=== PATIENT | male | born 1960 | race Caucasian/White ===

== ENCOUNTER 2017-08-27 09:42 | Observation (INO) | payer BC ==
--- NOTE | 2017-08-27 10:08 | ED ---
GI Bleed HPI - General Chief complaint: GI Bleed Stated complaint: Poss GI Bleed Time Seen by Provider: 08/27/17 09:45 Source: patient, EMS, RN notes reviewed Mode of arrival: EMS Limitations: physical limitation (MS) - History of Present Illness Initial comments: This is a pleasant 56-year-old male presents emergency department via EMS chief complaint rectal bleeding. Patient states that he had an episode a few months ago while having a bowel movement. Patient states again he had an additional episode yesterday while having a bowel movement and states that he had some bleeding in the shower today. Patient states that he does not go the bathroom regular because of his MS and states that he usually needs help. He states he either has to hold it or he really has to push. Patient states that he has had hemorrhoids in the past. He denies any abdominal pain denies any nausea, vomiting, fever, chills, chest pain or shortness breath. Patient states that he does feel this is early traumatic which has not made him feel well. Patient denies any dysuria or hematuria. Patient states he does not take any current medications. - Related Data Previous Rx's Medication Instructions Recorded Hydrocortisone [Anusol-Hc] 1 applic RECTAL BID #30 gm 08/27/17 Allergies Allergy/AdvReac Type Severity Reaction Status Date / Time No Known Allergies Allergy Verified 08/27/17 10:15 Review of Systems ROS Statement: Those systems with pertinent positive or pertinent negative responses have been documented in the HPI. ROS Other: All systems not noted in ROS Statement are negative. Past Medical History Additional Past Medical History / Comment(s): multiple sclerosis, hemorrhoids History of Any Multi-Drug Resistant Organisms: None Reported Past Surgical History: Cholecystectomy, Tonsillectomy Past Psychological History: No Psychological Hx Reported Smoking Status: Never smoker Past Alcohol Use History: None Reported Past Drug Use History: None Reported General Exam Limitations: no limitations General appearance: alert, in no apparent distress Head exam: Present: atraumatic, normocephalic, normal inspection Neck exam: Present: normal inspection, full ROM. Absent: tenderness, meningismus, lymphadenopathy Respiratory exam: Present: normal lung sounds bilaterally. Absent: respiratory distress, wheezes, rales, rhonchi, stridor Cardiovascular Exam: Present: regular rate, normal rhythm, normal heart sounds. Absent: systolic murmur, diastolic murmur, rubs, gallop, clicks GI/Abdominal exam: Present: soft, normal bowel sounds. Absent: distended, tenderness, guarding, rebound, rigid Rectal exam: Present: other (Blood noted around the rectum, hemorrhoids noted) Back exam: Absent: CVA tenderness (R), CVA tenderness (L) Skin exam: Present: warm, dry, intact, normal color. Absent: rash Course Vital Signs 08/27/17 08/27/17 08/27/17 09:43 10:25 10:28 Temperature 97.5 F L Pulse Rate 86 67 71 Respiratory 16 16 16 Rate Blood Pressure 140/82 101/58 120/63 O2 Sat by Pulse 98 97 98 Oximetry 08/27/17 11:06 Temperature Pulse Rate 91 Respiratory 16 Rate Blood Pressure 120/67 O2 Sat by Pulse 100 Oximetry - Reevaluation(s) Reevaluation #1: 08/27/17 11:03 1 patient was having IV place patient had vasovagal episode secondary to the blood and pain. Patient's was a all and slightly diaphoretic but states he still much better at this time. Medical Decision Making - Medical Decision Making 56-year-old male present emergency from for rectal bleeding. Patient does have some hemorrhoids noted with obvious blood. Patient's hemoglobin, lab work is unremarkable. Patient states she feels normal at this time he has no specific complaints. Patient did have a vasovagal episode during blood draw here. Patient again states is having no issues. Patient be discharged with Anusol advised to use fiber source and Tucks pads. - Lab Data Result diagrams: 08/27/17 10:30 08/27/17 10:30 Lab Results 08/27/17 08/27/17 08/27/17 Range/Units 10:22 10:30 10:30 WBC 9.8 (3.8-10.6) k/uL RBC 5.23 (4.30-5.90) m/uL Hgb 15.6 (13.0-17.5) gm/dL Hct 46.8 (39.0-53.0) % MCV 89.5 (80.0-100.0) fL MCH 29.8 (25.0-35.0) pg MCHC 33.3 (31.0-37.0) g/dL RDW 14.0 (11.5-15.5) % Plt Count 256 (150-450) k/uL Neutrophils % 73 % Lymphocytes % 17 % Monocytes % 7 % Eosinophils % 1 % Basophils % 1 % Neutrophils # 7.2 (1.3-7.7) k/uL Lymphocytes # 1.6 (1.0-4.8) k/uL Monocytes # 0.7 (0-1.0) k/uL Eosinophils # 0.1 (0-0.7) k/uL Basophils # 0.1 (0-0.2) k/uL PT (9.0-12.0) sec INR (<1.2) APTT (22.0-30.0) sec Sodium (137-145) mmol/L Potassium (3.5-5.1) mmol/L Chloride (98-107) mmol/L Carbon Dioxide (22-30) mmol/L Anion Gap mmol/L BUN (9-20) mg/dL Creatinine (0.66-1.25) mg/dL Est GFR (MDRD) Af Amer (>60 ml/min/1.73 sqM) Est GFR (MDRD) Non-Af (>60 ml/min/1.73 sqM) Glucose (74-99) mg/dL POC Glucose (mg/dL) 101 H (75-99) mg/dL POC Glu Equipment Maintenance Superintendent ID Alphonso Renee Calcium (8.4-10.2) mg/dL Total Bilirubin (0.2-1.3) mg/dL AST (17-59) U/L ALT (21-72) U/L Alkaline Phosphatase (38-126) U/L Total Creatine Kinase 56 (55-170) U/L CK-MB (CK-2) 1.3 (0.0-2.4) ng/mL CK-MB (CK-2) Rel Index 2.3 Troponin I (0.000-0.034) ng/mL Total Protein (6.3-8.2) g/dL Albumin (3.5-5.0) g/dL Lipase (23-300) U/L 08/27/17 08/27/17 08/27/17 Range/Units 10:30 10:30 10:30 WBC (3.8-10.6) k/uL RBC (4.30-5.90) m/uL Hgb (13.0-17.5) gm/dL Hct (39.0-53.0) % MCV (80.0-100.0) fL MCH (25.0-35.0) pg MCHC (31.0-37.0) g/dL RDW (11.5-15.5) % Plt Count (150-450) k/uL Neutrophils % % Lymphocytes % % Monocytes % % Eosinophils % % Basophils % % Neutrophils # (1.3-7.7) k/uL Lymphocytes # (1.0-4.8) k/uL Monocytes # (0-1.0) k/uL Eosinophils # (0-0.7) k/uL Basophils # (0-0.2) k/uL PT 11.1 (9.0-12.0) sec INR 1.1 (<1.2) APTT 25.5 (22.0-30.0) sec Sodium 137 (137-145) mmol/L Potassium 4.7 (3.5-5.1) mmol/L Chloride 101 (98-107) mmol/L Carbon Dioxide 28 (22-30) mmol/L Anion Gap 8 mmol/L BUN 14 (9-20) mg/dL Creatinine 0.90 (0.66-1.25) mg/dL Est GFR (MDRD) Af Amer >60 (>60 ml/min/1.73 sqM) Est GFR (MDRD) Non-Af >60 (>60 ml/min/1.73 sqM) Glucose 109 H (74-99) mg/dL POC Glucose (mg/dL) (75-99) mg/dL POC Glu Equipment Maintenance Superintendent ID Calcium 9.4 (8.4-10.2) mg/dL Total Bilirubin 0.9 (0.2-1.3) mg/dL AST 16 L (17-59) U/L ALT 29 (21-72) U/L Alkaline Phosphatase 40 (38-126) U/L Total Creatine Kinase (55-170) U/L CK-MB (CK-2) (0.0-2.4) ng/mL CK-MB (CK-2) Rel Index Troponin I <0.012 (0.000-0.034) ng/mL Total Protein 6.6 (6.3-8.2) g/dL Albumin 3.7 (3.5-5.0) g/dL Lipase 68 (23-300) U/L 08/27/17 12:07 EKG performed at time: 22 normal sinus rhythm with a rate of 62 MD 184 QRS 98 QT /QTC 410/416 Disposition Clinical Impression: Bleeding hemorrhoid, Vasovagal episode Disposition: HOME SELF-CARE Condition: Stable Instructions: Hemorrhoids (ED) Additional Instructions: Use stool softener or fiber source to help keep stools soft., Use Tucks pads for wipes. Please return to the Emergency Department if symptoms worsen or any other concerns. Prescriptions: Hydrocortisone [Anusol-Hc] 1 applic RECTAL BID #30 gm Referrals: David Francisco MD [Primary Care Provider] - 1-2 days Time of Disposition: 12:09
[2017-08-27 10:37] LABS: Glucose,Whole Blood 101 mg/dL (75-99)
[2017-08-27 10:41] LABS: Basophils # (A) 0.1 k/uL (0-0.2); Basophils % (A) 1 %; CHCM 33.7; Eosinophils # (A) 0.1 k/uL (0-0.7); Eosinophils % (A) 1 %; HCT 46.8 % (39.0-53.0); HDW 2.44; HGB 15.6 gm/dL (13.0-17.5); Luc # (Auto) 0.13; Luc % (Auto) 1; Lymphocytes # (A) 1.6 k/uL (1.0-4.8); Lymphocytes % (A) 17 %; MCH 29.8 pg (25.0-35.0); MCHC 33.3 g/dL (31.0-37.0); MCV 89.5 fL (80.0-100.0); Mean Platelet Volume 7.4; Monocytes # (A) 0.7 k/uL (0-1.0); Monocytes % (A) 7 %; Neutrophils # (A) 7.2 k/uL (1.3-7.7); Neutrophils % (A) 73 %; RBC 5.23 m/uL (4.30-5.90); WBC 9.8 k/uL (3.8-10.6); WBC (Perox) 9.71
[2017-08-27 10:49] LABS: INR 1.1 (<1.2); Partial Thromboplastin Time 25.5 sec (22.0-30.0); Prothrombin Time 11.1 sec (9.0-12.0)
[2017-08-27 10:53] LABS: ALT 29 U/L (21-72); AST 16 U/L (17-59); Alkaline Phosphatase 40 U/L (38-126); Anion Gap 8 mmol/L; Blood Urea Nitrogen 14 mg/dL (9-20); Calcium 9.4 mg/dL (8.4-10.2); Carbon Dioxide 28 mmol/L (22-30); Chloride 101 mmol/L (98-107); Glucose 109 mg/dL (74-99); Non-African American GFR(MDRD) >60 (>60 ml/min/1.73 sqM); Potassium 4.7 mmol/L (3.5-5.1); Sodium 137 mmol/L (137-145); Total Bilirubin 0.9 mg/dL (0.2-1.3); Total Protein 6.6 g/dL (6.3-8.2)
[2017-08-27 11:22] LABS: Creatine Kinase MB 1.3 ng/mL (0.0-2.4)
[2017-08-27] MEDS ORDERED: NALOXONE 0.4 MG/ML 1 ML VIAL IV PRN (12:52)
[2017-08-27] MEDS ORDERED: ACETAMINOPHEN TAB 325 MG TAB PO PRN (12:52)
--- NOTE | 2017-08-27 12:52 | ED ---
Medical Decision Making - Medical Decision Making 56-year-old male presented for rectal bleeding. This appears to be hemorrhoid bleeding families concern amount of bleeding is having and his inability to take care of himself secondary to MS. Patient will be admitted for further evaluation. - Lab Data Result diagrams: 08/27/17 10:30 08/27/17 10:30 Lab Results 08/27/17 08/27/17 08/27/17 Range/Units 10:22 10:30 10:30 WBC 9.8 (3.8-10.6) k/uL RBC 5.23 (4.30-5.90) m/uL Hgb 15.6 (13.0-17.5) gm/dL Hct 46.8 (39.0-53.0) % MCV 89.5 (80.0-100.0) fL MCH 29.8 (25.0-35.0) pg MCHC 33.3 (31.0-37.0) g/dL RDW 14.0 (11.5-15.5) % Plt Count 256 (150-450) k/uL Neutrophils % 73 % Lymphocytes % 17 % Monocytes % 7 % Eosinophils % 1 % Basophils % 1 % Neutrophils # 7.2 (1.3-7.7) k/uL Lymphocytes # 1.6 (1.0-4.8) k/uL Monocytes # 0.7 (0-1.0) k/uL Eosinophils # 0.1 (0-0.7) k/uL Basophils # 0.1 (0-0.2) k/uL PT (9.0-12.0) sec INR (<1.2) APTT (22.0-30.0) sec Sodium (137-145) mmol/L Potassium (3.5-5.1) mmol/L Chloride (98-107) mmol/L Carbon Dioxide (22-30) mmol/L Anion Gap mmol/L BUN (9-20) mg/dL Creatinine (0.66-1.25) mg/dL Est GFR (MDRD) Af Amer (>60 ml/min/1.73 sqM) Est GFR (MDRD) Non-Af (>60 ml/min/1.73 sqM) Glucose (74-99) mg/dL POC Glucose (mg/dL) 101 H (75-99) mg/dL POC Glu Conveyor Weigher Operator ID Alphonso Renee Calcium (8.4-10.2) mg/dL Total Bilirubin (0.2-1.3) mg/dL AST (17-59) U/L ALT (21-72) U/L Alkaline Phosphatase (38-126) U/L Total Creatine Kinase 56 (55-170) U/L CK-MB (CK-2) 1.3 (0.0-2.4) ng/mL CK-MB (CK-2) Rel Index 2.3 Troponin I (0.000-0.034) ng/mL Total Protein (6.3-8.2) g/dL Albumin (3.5-5.0) g/dL Lipase (23-300) U/L 08/27/17 08/27/17 08/27/17 Range/Units 10:30 10:30 10:30 WBC (3.8-10.6) k/uL RBC (4.30-5.90) m/uL Hgb (13.0-17.5) gm/dL Hct (39.0-53.0) % MCV (80.0-100.0) fL MCH (25.0-35.0) pg MCHC (31.0-37.0) g/dL RDW (11.5-15.5) % Plt Count (150-450) k/uL Neutrophils % % Lymphocytes % % Monocytes % % Eosinophils % % Basophils % % Neutrophils # (1.3-7.7) k/uL Lymphocytes # (1.0-4.8) k/uL Monocytes # (0-1.0) k/uL Eosinophils # (0-0.7) k/uL Basophils # (0-0.2) k/uL PT 11.1 (9.0-12.0) sec INR 1.1 (<1.2) APTT 25.5 (22.0-30.0) sec Sodium 137 (137-145) mmol/L Potassium 4.7 (3.5-5.1) mmol/L Chloride 101 (98-107) mmol/L Carbon Dioxide 28 (22-30) mmol/L Anion Gap 8 mmol/L BUN 14 (9-20) mg/dL Creatinine 0.90 (0.66-1.25) mg/dL Est GFR (MDRD) Af Amer >60 (>60 ml/min/1.73 sqM) Est GFR (MDRD) Non-Af >60 (>60 ml/min/1.73 sqM) Glucose 109 H (74-99) mg/dL POC Glucose (mg/dL) (75-99) mg/dL POC Glu Conveyor Weigher Operator ID Calcium 9.4 (8.4-10.2) mg/dL Total Bilirubin 0.9 (0.2-1.3) mg/dL AST 16 L (17-59) U/L ALT 29 (21-72) U/L Alkaline Phosphatase 40 (38-126) U/L Total Creatine Kinase (55-170) U/L CK-MB (CK-2) (0.0-2.4) ng/mL CK-MB (CK-2) Rel Index Troponin I <0.012 (0.000-0.034) ng/mL Total Protein 6.6 (6.3-8.2) g/dL Albumin 3.7 (3.5-5.0) g/dL Lipase 68 (23-300) U/L Disposition Clinical Impression: Bleeding hemorrhoid, Vasovagal episode, Rectal bleeding Disposition: ADMITTED IP TO THIS HOSP Condition: Stable Instructions: Hemorrhoids (ED) Additional Instructions: Use stool softener or fiber source to help keep stools soft., Use Tucks pads for wipes. Please return to the Emergency Department if symptoms worsen or any other concerns. Prescriptions: Hydrocortisone [Anusol-Hc] 1 applic RECTAL BID #30 gm Referrals: David Francisco MD [Primary Care Provider] - 1-2 days
--- NOTE | 2017-08-27 14:38 | P.HPIM ---
History of Present Illness 56-year-old male was admitted to the emergency room with complaints of rectal bleeding. Patient noted to have hemorrhoid. Patient did have vasovagal episode with blood draw in ER. No syncope at home. Patient has MS legs are contractured patient is awaiting old chair bound. States increasing weakness and contractures to arms. Review of Systems Constitutional: Reports weakness Genitourinary: Reports incontinence Musculoskeletal: Reports muscle cramps, Reports muscle weakness Past Medical History Additional Past Medical History / Comment(s): multiple sclerosis, hemorrhoids History of Any Multi-Drug Resistant Organisms: None Reported Past Surgical History: Cholecystectomy, Tonsillectomy Past Psychological History: No Psychological Hx Reported Smoking Status: Never smoker Past Alcohol Use History: None Reported Past Drug Use History: None Reported Medications and Allergies Home Medications Medication Instructions Recorded Confirmed Type Hydrocortisone [Anusol-Hc] 1 applic RECTAL BID #30 gm 08/27/17 Rx Allergies Allergy/AdvReac Type Severity Reaction Status Date / Time No Known Allergies Allergy Verified 08/27/17 10:15 Physical Exam Vitals: Vital Signs Temp Pulse Pulse Resp BP BP Pulse Ox 08/27/17 14:04 97.5 F L 109 H 16 146/87 99 08/27/17 13:29 97 16 125/76 100 08/27/17 12:19 98.0 F 100 20 130/71 99 08/27/17 11:06 91 16 120/67 100 08/27/17 10:28 71 16 120/63 98 08/27/17 10:25 67 16 101/58 97 08/27/17 09:43 97.5 F L 86 16 140/82 98 Intake and Output 08/26/17 08/27/17 08/27/17 22:59 06:59 14:59 Other: Weight 86.183 kg Patient Weight 08/28/17 06:59 Weight 86.183 kg - Constitutional General appearance: mild distress - EENT Eyes: PERRLA Ears: bilateral: normal - Neck Neck: normal ROM - Respiratory Respiratory: bilateral: CTA - Cardiovascular Rhythm: regular - Gastrointestinal General gastrointestinal: soft - Genitourinary Monreal catheter in place - Integumentary Integumentary: normal - Neurologic Neurologic: CNII-XII intact - Musculoskeletal Contractures to legs wheelchair bound weakness and contractures to arms Musculoskeletal: generalized weakness - Psychiatric Psychiatric: A&O x's 3, appropriate affect, intact judgment & insight Results CBC & Chem 7: 08/27/17 10:30 08/27/17 10:30 Labs: Abnormal Lab Results - Last 24 Hours (Table) 08/27/17 08/27/17 Range/Units 10:22 10:30 Glucose 109 H (74-99) mg/dL POC Glucose (mg/dL) 101 H (75-99) mg/dL AST 16 L (17-59) U/L Assessment and Plan Assessment: Assessment Rectal bleeding hemorrhoid Multiple sclerosis Weakness in arm contractures Plan Repeat CBC in a.m. Consultation with surgery Dr. Nolan Santos Consultation with occupational therapy and physical therapy
[2017-08-27] MEDS: PANTOPRAZOLE 40 MG/10 ML VIAL IV SCH (16:29)
[2017-08-27] MEDS: HYDROCORTISONE 2.5% RECTAL CREAM 30 GM TUBE RECTAL SCH (23:56)
[2017-08-28 07:39] VITALS: BP 145/81; PULSE 111; RESP 20; TEMP 99.3
[2017-08-28] MEDS: PANTOPRAZOLE 40 MG/10 ML VIAL IV SCH (09:05)
--- NOTE | 2017-08-28 09:47 | P.GSCN ---
History of Present Illness Consult date: 08/28/17 History of present illness: Patient is a 56-year-old white male with progressive multiple sclerosis. He states that approximately a month ago he noted bleeding after bowel movement. The blood was bright red. This did not occur again until several days ago. He again noted some bleeding with a bowel movement and then after a shower he noted that blood per rectum. Patient denies any pain. The patient states that he has inability to ambulate he can't stand or walk on his own. The patient has been eating but his bowel movements have been sluggish. The patient has been diagnosed with multiple sclerosis since 2002. At this time the patient has no abdominal pain on admission his hemoglobin was 15.6 and he has had no further rectal bleeding since admission. Past surgical history: Cholecystectomy Tonsillectomy Past medical history: Multiple sclerosis Medications: Negative ALLERGIES: Negative Social history: Smoking: Negative Alcohol: Negative Marijuana: Negative Review of systems: HEENT: Negative Lungs: Negative Heart: Negative GI: Constipation : Negative Review of Systems - Constitutional Constitutional Comment(s): Multiple sclerosis, patient is wheelchair-bound is unable to stand or ambulate Reports as per HPI - Cardiovascular Reports as per HPI - Respiratory Reports as per HPI - Gastrointestinal Reports as per HPI - Genitourinary Reports as per HPI - Musculoskeletal Musculoskeleta Comment(s): Multiple sclerosis Reports as per HPI - Neurological Reports as per HPI - Psychiatric Reports as per HPI Past Medical History Additional Past Medical History / Comment(s): multiple sclerosis, hemorrhoids History of Any Multi-Drug Resistant Organisms: None Reported Past Surgical History: Cholecystectomy, Tonsillectomy Past Anesthesia/Blood Transfusion Reactions: No Reported Reaction Past Psychological History: No Psychological Hx Reported Smoking Status: Never smoker Past Alcohol Use History: None Reported Past Drug Use History: None Reported - Past Family History Father Additional Family Medical History / Comment(s): Father has heart disease. Mother Family Medical History: No Reported History Medications and Allergies Home Medications Medication Instructions Recorded Confirmed Type Hydrocortisone [Anusol-Hc] 1 applic RECTAL BID #30 gm 08/27/17 Rx Allergies Allergy/AdvReac Type Severity Reaction Status Date / Time No Known Allergies Allergy Verified 08/27/17 10:15 Surgical - Exam Vital Signs Temp Pulse Resp BP Pulse Ox 97.5 F L 86 16 140/82 98 08/27/17 09:43 08/27/17 09:43 08/27/17 09:43 08/27/17 09:43 08/27/17 09:43 - General Minimal movement of lower extremities secondary to multiple sclerosis no distress - Eyes normal ocular movement - ENT normal pinna, normal nares, no hearing loss - Neck no masses, trachea midline, no lymphadectomy, no venous distension - Respiratory normal respiratory effort, clear to auscultation - Cardiovascular Rhythm: regular Heart Sounds: normal: S1, S2 - Abdomen Abdomen: soft, non tender, bowel sounds - Rectum Decreased sphincter tone No masses on examination No definite external hemorrhoids identified - Musculoskeletal Weakness lower extremities unable to stand or walk - Psychiatric oriented to time, oriented to person, oriented to place, speech is normal Results - Labs 08/27/17 10:30 08/27/17 10:30 Abnormal Lab Results - Last 24 Hours (Table) 08/27/17 08/27/17 Range/Units 10:22 10:30 Glucose 109 H (74-99) mg/dL POC Glucose (mg/dL) 101 H (75-99) mg/dL AST 16 L (17-59) U/L Diabetes panel 08/27/17 08/27/17 Range/Units 10:30 10:30 Sodium 137 (137-145) mmol/L Potassium 4.7 (3.5-5.1) mmol/L Chloride 101 (98-107) mmol/L Carbon Dioxide 28 (22-30) mmol/L BUN 14 (9-20) mg/dL Creatinine 0.90 (0.66-1.25) mg/dL Glucose 109 H (74-99) mg/dL Hemoglobin A1c 5.1 (4.0-6.0) % Calcium 9.4 (8.4-10.2) mg/dL AST 16 L (17-59) U/L ALT 29 (21-72) U/L Alkaline Phosphatase 40 (38-126) U/L Total Protein 6.6 (6.3-8.2) g/dL Albumin 3.7 (3.5-5.0) g/dL Calcium panel 08/27/17 Range/Units 10:30 Calcium 9.4 (8.4-10.2) mg/dL Albumin 3.7 (3.5-5.0) g/dL Pituitary panel 08/27/17 Range/Units 10:30 Sodium 137 (137-145) mmol/L Potassium 4.7 (3.5-5.1) mmol/L Chloride 101 (98-107) mmol/L Carbon Dioxide 28 (22-30) mmol/L BUN 14 (9-20) mg/dL Creatinine 0.90 (0.66-1.25) mg/dL Glucose 109 H (74-99) mg/dL Calcium 9.4 (8.4-10.2) mg/dL Adrenal panel 08/27/17 Range/Units 10:30 Sodium 137 (137-145) mmol/L Potassium 4.7 (3.5-5.1) mmol/L Chloride 101 (98-107) mmol/L Carbon Dioxide 28 (22-30) mmol/L BUN 14 (9-20) mg/dL Creatinine 0.90 (0.66-1.25) mg/dL Glucose 109 H (74-99) mg/dL Calcium 9.4 (8.4-10.2) mg/dL Total Bilirubin 0.9 (0.2-1.3) mg/dL AST 16 L (17-59) U/L ALT 29 (21-72) U/L Alkaline Phosphatase 40 (38-126) U/L Total Protein 6.6 (6.3-8.2) g/dL Albumin 3.7 (3.5-5.0) g/dL Assessment and Plan Plan: Impression/plan: 1. 56-year-old white male with progressive multiple sclerosis and lower GI bleeding 2. Questionable history of hemorrhoids Plan: 1. I have recommended colonoscopic evaluation with anoscopic evaluation and hemorrhoidectomy if this is necessary I have had a long discussion with the patient and his regarding the need for colonic evaluation. At this time the patient states that it is easier for him to undergo bowel prep at home that it would be in the hospital. He wishes to be discharged home and undergo bowel prep at home and will have colonoscopy done an elective basis next week. We have discussed the options of colonoscopy which she is very concerned about how he will handle the bowel prep, anoscopy after fleets enemas, or simple observation. My recommendation is colonoscopy. Patient understands this at this time he has agreed to it but states that he wants to do the bowel prep at home. At this time he has no active bleeding but he understands that if he goes home and attempts to have a bowel prep that he may develop bleeding again at home. If this happens and there is concern he would return to the emergency room.
[2017-08-28] MEDS: HYDROCORTISONE 2.5% RECTAL CREAM 30 GM TUBE RECTAL SCH (11:16)
--- NOTE | 2017-08-28 18:00 | P.DS ---
Providers Date of admission: 08/27/17 13:09 Attending physician: David Francisco Consults: 08/27/17 13:15 Consult Physician Urgent Consulting Provider: Kemi Holloway Consult Reason/Comments: rectal bleeding, hemorrhoids Do you want consulting provider notified?: Yes Primary care physician: David Francisco [facility] Course: This 56-year-old gentleman being followed by Dr. Alicia Francisco in the preceding also had a history significant multiple sclerosis. Patient was admitted with the lower GI bleeding. Surgery saw the patient and recommended outpatient follow-up and possible scopes in the outpatient setting. Hemoglobin stable at this time. Patient be discharged in a stable condition with guarded prognosis. On exam vitals are stable. Cardio S1 and S2 normal. Respirator system clear to oscillation. Abdomen soft nontender. No system no focal weakness. Final diagnosis 1. Acute lower GI bleeding possibly hemorrhoids. 2. Multiple sclerosis. 3. Weakness multifactorial. Patient Condition at Discharge: Stable Plan - Discharge Summary Discharge Rx Participant: Yes New Discharge Prescriptions: New Hydrocortisone [Anusol-Hc] 1 applic RECTAL BID #30 gm Pantoprazole Sodium [Protonix] 40 mg PO DAILY #30 tablet. Discharge Medication List Hydrocortisone [Anusol-Hc] 1 applic RECTAL BID #30 gm 08/27/17 [Rx] Pantoprazole Sodium [Protonix] 40 mg PO DAILY #30 tablet. 08/28/17 [Rx] Follow up Appointment(s)/Referral(s): David Francisco MD [Primary Care Provider] - 3 Days Kemi Holloway MD [STAFF PHYSICIAN] - 09/03/17 [facility], [NON-STAFF] - Ambulatory/Diagnostic Orders: Complete Blood Count w/diff [LAB.AMB] Time Frame: 3 Days, Location: Determined By Patient Patient Instructions/Handouts: Hemorrhoids (ED) Activity/Diet/Wound Care/Special Instructions: Use stool softener or fiber source to help keep stools soft., Use Tucks pads for wipes. Please return to the Emergency Department if symptoms worsen or any other concerns. Colonoscopy prep to be picked up/ RX sent to pharmacy on . Prep sheet given for colonoscopy on 09-03. Discharge Disposition: HOME SELF-CARE
== END 2017-08-28 12:09 | disposition home or self-care (01) ==
LOC: EC 09:42 → 4MS4W 13:09
PROVIDERS: ADMIT Family Medicine; ATTEND Family Medicine
DX: K92.2 Gastrointestinal hemorrhage, unspecified (principal); G35 Multiple sclerosis; R53.1 Weakness; R55 Syncope and collapse; Z99.3 Dependence on wheelchair
CPT/HCPCS: 36415; 80053; 82550; 82553; 83036; 83690; 84484; 85025; 85610; 85730; 93005; 99285

== ENCOUNTER 2017-09-03 07:15 | Day surgery (SDC) | payer BC ==
[2017-09-02 10:38] VITALS: BMI 23.7
[~2017-09-03 07:15] MED LIST: LACTATED RINGERS 1,000 ML IV SCH
[2017-09-03 07:46] VITALS: TEMP 98.3
[2017-09-03] MEDS ORDERED: LIDOCAINE 1% INJ 10MG/ML (20 ML MDV) ONE (08:42)
[2017-09-03] MEDS ORDERED: PROPOFOL 10 MG/ML 20 ML VIAL IV ONE (08:42)
--- NOTE | 2017-09-03 09:41 | P.PCN ---
Date of Procedure: 09/03/17 Preoperative Diagnosis: Blood per rectum Postoperative Diagnosis: Diverticuli, internal/with extension and external hemorrhoids Procedure(s) Performed: Colonoscopy Anesthesia: MAC Surgeon: Kemi Holloway Estimated Blood Loss (ml): 0 IV fluids (ml): 650 Pathology: none sent Condition: stable Disposition: PACU Indications for Procedure: Blood per rectum Operative Findings: Internal/external hemorrhoids, diverticuli Description of Procedure: Patient was taken to the endoscopy suite and following sedation was placed in the left lateral decubitus position. Rectal exam was performed. An external posterior hemorrhoidal complex was identified which looked like there was some excoriation present. No masses were noted. Colonoscope was passed through the anus into the rectum. Was passed into the sigmoid colon which was extremely tortuous and redundant. The patient was noted to have sigmoid diverticulum. The scope was continued to be passed to the splenic flexure transverse colon hepatic flexure to the area of the cecum. Circumferential observation of mucosa did not reveal any lesions of concern. Proximally 6 minutes were taken to withdraw the scope from the cecum to the rectum. No mucosal lesions of concern were noted in the cecum or right colon. No mucosal lesions of concern in the transverse colon. No lesions of concern in the left colon diverticulum as noted in the sigmoid colon scope was brought down into the rectum where it was retroflexed. Internal hemorrhoidal tissue was noted. Impression/plan: #1 internal/external hemorrhoids 2. Diverticuli Plan: 1. At this point patient has no obvious bleeding and would treat conservatively 2. Repeat scope 7-10 years 3. Careful not to get constipated/ control by diet
--- NOTE | 2017-09-03 09:43 | P.DS ---
Providers Attending physician: Kemi Holloway Primary care physician: David Francisco Plan - Discharge Summary New Discharge Prescriptions: No Action No Known Home Medications [No Known Home Medications] Discharge Medication List No Known Home Medications [No Known Home Medications] 09/02/17 [History] Activity/Diet/Wound Care/Special Instructions: Be careful not to get constipated Discharge Disposition: HOME SELF-CARE
[2017-09-03 10:16] VITALS: BP 132/76; PULSE 87; RESP 20
== END 2017-09-03 10:18 | disposition home or self-care (01) ==
LOC: ORWHC2ENDO 07:15
PROVIDERS: ATTEND Surgery
DX: K57.30 Diverticulosis of large intestine without perforation or abscess without bleeding (principal); K64.8 Other hemorrhoids; K64.4 Residual hemorrhoidal skin tags; Q43.8 Other specified congenital malformations of intestine; G35 Multiple sclerosis
CPT/HCPCS: 45378; J2001; J2704

== ENCOUNTER 2020-07-22 17:44 | Emergency (ER) | payer BC ==
[2020-07-22] MEDS ORDERED: ACETAMINOPHEN TAB 500 MG TAB PO STA (18:31)
[2020-07-22] MEDS ORDERED: SODIUM CHLORIDE 0.9% 1,000 ML IV STA (18:52)
[2020-07-22 19:52] LABS: Basophils % (A) 0 %; Eosinophils # (A) 0.1 k/uL (0-0.7); Eosinophils % (A) 1 %; HCT 44.3 % (39.0-53.0); HGB 14.5 gm/dL (13.0-17.5); Lymphocytes # (A) 0.9 k/uL (1.0-4.8); Lymphocytes % (A) 8 %; MCH 31.3 pg (25.0-35.0); MCHC 32.8 g/dL (31.0-37.0); MCV 95.3 fL (80.0-100.0); Mean Platelet Volume 6.8; Monocytes # (A) 0.7 k/uL (0-1.0); Monocytes % (A) 6 %; Neutrophils # (A) 10.3 k/uL (1.3-7.7); Neutrophils % (A) 85 %; Platelet Count 360 k/uL (150-450); RBC 4.65 m/uL (4.30-5.90); WBC 12.2 k/uL (3.8-10.6)
[2020-07-22 20:03] LABS: ALT 30 U/L (4-49); AST 31 U/L (17-59); African American GFR (CKD) >90 (>60 ml/min/1.73 sqM); Albumin 3.4 g/dL (3.5-5.0); Alkaline Phosphatase 48 U/L (38-126); Anion Gap 7 mmol/L; Blood Urea Nitrogen 10 mg/dL (9-20); Calcium 8.6 mg/dL (8.4-10.2); Carbon Dioxide 31 mmol/L (22-30); Chloride 95 mmol/L (98-107); Glucose 134 mg/dL (74-99); Non-African American GFR(CKD) >90 (>60 ml/min/1.73 sqM); Potassium 4.2 mmol/L (3.5-5.1); Sodium 133 mmol/L (137-145); Total Bilirubin 0.7 mg/dL (0.2-1.3); Total Protein 6.6 g/dL (6.3-8.2)
[2020-07-22 20:25] LABS: Appearance,Urine Cloudy (Clear); Bacteria,Urine Moderate /hpf; Bilirubin,Urine Negative (Negative); Blood,Urine Small (Negative); Budding Yeast,Urine Few /hpf; Color,Urine Yellow; Glucose,Urine (UA) Negative (Negative); Ketones,Urine Negative (Negative); Leukocyte Esterase,Urine Trace (Negative); Mucus,Urine Rare /hpf; Nitrite,Urine Negative (Negative); Protein,Urine Negative (Negative); RBC,Urine 6 /hpf (0-5); Specific Gravity,Urine 1.011 (1.001-1.035); Squamous Epithelial Cell,Urine <1 /hpf (0-4)
[2020-07-22] MEDS ORDERED: cefTRIAXone IN SWFI 1,000 MG/10 ML SYRINGE IVP STA (20:34)
--- NOTE | 2020-07-22 21:03 | ED ---
General Adult HPI - General Chief complaint: Upper Respiratory Infection Stated complaint: Diarrhea Time Seen by Provider: 07/22/20 17:50 Source: patient, family Mode of arrival: wheelchair Limitations: physical limitation - History of Present Illness Initial comments: Patient is a 59-year-old male with history of multiple sclerosis who presents emergency Department with reported weakness in upper respiratory symptoms. Patient states that one week ago he began having nasal congestion, sinus pressure and nonproductive cough. He is taking [id number] medications for symptoms. Reports that they began to improve until today when he found himself so weak and lightheaded that he decided to come into the emergency room for evaluation. Upon presentation here was found of the patient's fever. He does have an indwelling Rodriguez and called his doctor who recommended he come into the emergency department for evaluation of UTI. States he's had the Rodriguez in place for 2 years and has yet to have a urinary tract infection. Patient does not take any medications for his MS. States that the cough and congestion have entirely improved at this time. No sick contacts at Covid symptoms. Denies chest pain. No abdominal pain. Does admit to possible red discoloration to his urine in his Rodriguez bag. Also admits to 2 episodes of explosive diarrhea. Denies melenic stools or hematochezia. No recent antibiotic use. No other alleviating, precipitating or modifying factors - Related Data Previous Rx's Medication Instructions Recorded Ciprofloxacin HCl [Cipro] 500 mg PO BID 1 Days #14 tab 07/22/20 Allergies Allergy/AdvReac Type Severity Reaction Status Date / Time No Known Allergies Allergy Verified 07/22/20 20:07 Review of Systems ROS Statement: Those systems with pertinent positive or pertinent negative responses have been documented in the HPI. ROS Other: All systems not noted in ROS Statement are negative. Past Medical History Past Medical History: GI Bleed Additional Past Medical History / Comment(s): multiple sclerosis, uses a lift with straps to transfer to chair. , Hospitalized at [facility] 08/27/17-08/28/17 for rectal bleeding, difficulty urinating after discharge and has indwelling rodriguez catheter. History of Any Multi-Drug Resistant Organisms: None Reported Past Surgical History: Cholecystectomy, Tonsillectomy Past Anesthesia/Blood Transfusion Reactions: No Reported Reaction Past Psychological History: No Psychological Hx Reported Smoking Status: Never smoker Past Alcohol Use History: None Reported Past Drug Use History: None Reported - Past Family History Father Additional Family Medical History / Comment(s): Father has heart disease. Mother Family Medical History: No Reported History General Exam Limitations: physical limitation General appearance: alert, in no apparent distress Head exam: Present: atraumatic, normocephalic, normal inspection Eye exam: Present: normal appearance, PERRL, EOMI. Absent: scleral icterus, conjunctival injection, periorbital swelling ENT exam: Present: normal exam, mucous membranes moist Neck exam: Present: normal inspection. Absent: tenderness, meningismus, lymphadenopathy Respiratory exam: Present: normal lung sounds bilaterally. Absent: respiratory distress, wheezes, rales, rhonchi, stridor Cardiovascular Exam: Present: regular rate, normal rhythm, normal heart sounds. Absent: systolic murmur, diastolic murmur, rubs, gallop, clicks GI/Abdominal exam: Present: soft, normal bowel sounds. Absent: distended, tenderness, guarding, rebound, rigid Extremities exam: Present: normal inspection, full ROM, normal capillary refill. Absent: tenderness, pedal edema, joint swelling, calf tenderness Back exam: Present: normal inspection Neurological exam: Present: alert, oriented X3, CN II-XII intact Psychiatric exam: Present: normal affect, normal mood Skin exam: Present: warm, dry, intact, normal color. Absent: rash Course Vital Signs 07/22/20 07/22/20 07/22/20 17:46 21:00 21:24 Temperature 101.3 F H 100.2 F H 100.2 F H Pulse Rate 116 H 96 Respiratory 22 16 Rate Blood Pressure 147/76 129/64 O2 Sat by Pulse 92 L 96 Oximetry Medical Decision Making - Medical Decision Making Upon return of the patient's placed into room 4. A thorough history and physical exam was performed. I did recommend chest x-ray, covid and influenza swabs as well as laboratory studies. Patient does refuse a chest x-ray stating that it is too hard for him and maneuver from his chair to the bed. He also denies a cough or shortness of breath. Peripheral IV is established and the patient was given a liter bolus of normal saline. Patient was given 1 g of Tylenol. Laboratory studies demonstrate a white count of 12.2. Urinalysis is positive for moderate bacteria. Patient will be given a dose of Rocephin. P atient then does agree to Covid testing. He requests discharge at this time. Patient will be given a prescription for Cipro. He must take the medications as directed and follow his primary care doctor within 2-4 days. The patient has any new or worsening symptoms to include worsening fever, weakness, inability to void the patient must return to the emergency room. The patient understood. He is given written and verbal discharge instructions and discharged home in stable condition - Lab Data Result diagrams: 07/22/20 19:40 07/22/20 19:40 Lab Results 07/22/20 07/22/20 07/22/20 Range/Units 19:40 19:40 19:40 WBC 12.2 H (3.8-10.6) k/uL RBC 4.65 (4.30-5.90) m/uL Hgb 14.5 (13.0-17.5) gm/dL Hct 44.3 (39.0-53.0) % MCV 95.3 (80.0-100.0) fL MCH 31.3 (25.0-35.0) pg MCHC 32.8 (31.0-37.0) g/dL RDW 13.0 (11.5-15.5) % Plt Count 360 (150-450) k/uL Neutrophils % 85 % Lymphocytes % 8 % Monocytes % 6 % Eosinophils % 1 % Basophils % 0 % Neutrophils # 10.3 H (1.3-7.7) k/uL Lymphocytes # 0.9 L (1.0-4.8) k/uL Monocytes # 0.7 (0-1.0) k/uL Eosinophils # 0.1 (0-0.7) k/uL Basophils # 0.0 (0-0.2) k/uL Sodium 133 L (137-145) mmol/L Potassium 4.2 (3.5-5.1) mmol/L Chloride 95 L (98-107) mmol/L Carbon Dioxide 31 H (22-30) mmol/L Anion Gap 7 mmol/L BUN 10 (9-20) mg/dL Creatinine 0.47 L (0.66-1.25) mg/dL Est GFR (CKD-EPI)AfAm >90 (>60 ml/min/1.73 sqM) Est GFR (CKD-EPI)NonAf >90 (>60 ml/min/1.73 sqM) Glucose 134 H (74-99) mg/dL Plasma Lactic Acid Desmond 1.2 (0.7-2.0) mmol/L Calcium 8.6 (8.4-10.2) mg/dL Total Bilirubin 0.7 (0.2-1.3) mg/dL AST 31 (17-59) U/L ALT 30 (4-49) U/L Alkaline Phosphatase 48 (38-126) U/L Total Protein 6.6 (6.3-8.2) g/dL Albumin 3.4 L (3.5-5.0) g/dL Urine Color Urine Appearance (Clear) Urine pH (5.0-8.0) Ur Specific Rosine (1.001-1.035) Urine Protein (Negative) Urine Glucose (UA) (Negative) Urine Ketones (Negative) Urine Blood (Negative) Urine Nitrite (Negative) Urine Bilirubin (Negative) Urine Urobilinogen (<2.0) mg/dL Ur Leukocyte Esterase (Negative) Urine RBC (0-5) /hpf Ur Squamous Epith Cells (0-4) /hpf Urine Bacteria (None) /hpf Urine Mucus (None) /hpf Urine Yeast (Budding) (None) /hpf Coronavirus (PCR) (Not Detected) Influenza Type A RNA (Not Detectd) Influenza Type B (PCR) (Not Detectd) 07/22/20 07/22/20 07/22/20 Range/Units 20:00 21:59 21:59 WBC (3.8-10.6) k/uL RBC (4.30-5.90) m/uL Hgb (13.0-17.5) gm/dL Hct (39.0-53.0) % MCV (80.0-100.0) fL MCH (25.0-35.0) pg MCHC (31.0-37.0) g/dL RDW (11.5-15.5) % Plt Count (150-450) k/uL Neutrophils % % Lymphocytes % % Monocytes % % Eosinophils % % Basophils % % Neutrophils # (1.3-7.7) k/uL Lymphocytes # (1.0-4.8) k/uL Monocytes # (0-1.0) k/uL Eosinophils # (0-0.7) k/uL Basophils # (0-0.2) k/uL Sodium (137-145) mmol/L Potassium (3.5-5.1) mmol/L Chloride (98-107) mmol/L Carbon Dioxide (22-30) mmol/L Anion Gap mmol/L BUN (9-20) mg/dL Creatinine (0.66-1.25) mg/dL Est GFR (CKD-EPI)AfAm (>60 ml/min/1.73 sqM) Est GFR (CKD-EPI)NonAf (>60 ml/min/1.73 sqM) Glucose (74-99) mg/dL Plasma Lactic Acid Desmond (0.7-2.0) mmol/L Calcium (8.4-10.2) mg/dL Total Bilirubin (0.2-1.3) mg/dL AST (17-59) U/L ALT (4-49) U/L Alkaline Phosphatase (38-126) U/L Total Protein (6.3-8.2) g/dL Albumin (3.5-5.0) g/dL Urine Color Yellow Urine Appearance Cloudy (Clear) Urine pH 7.0 (5.0-8.0) Ur Specific Rosine 1.011 (1.001-1.035) Urine Protein Negative (Negative) Urine Glucose (UA) Negative (Negative) Urine Ketones Negative (Negative) Urine Blood Small H (Negative) Urine Nitrite Negative (Negative) Urine Bilirubin Negative (Negative) Urine Urobilinogen 4.0 (<2.0) mg/dL Ur Leukocyte Esterase Trace H (Negative) Urine RBC 6 H (0-5) /hpf Ur Squamous Epith Cells <1 (0-4) /hpf Urine Bacteria Moderate H (None) /hpf Urine Mucus Rare H (None) /hpf Urine Yeast (Budding) Few H (None) /hpf Coronavirus (PCR) Not Detected (Not Detected) Influenza Type A RNA Not Detected (Not Detectd) Influenza Type B (PCR) Not Detected (Not Detectd) Disposition Clinical Impression: Pyrexia, UTI (urinary tract infection), Indwelling catheter present on admission Disposition: HOME SELF-CARE Condition: Stable Instructions (If sedation given, give patient instructions): Urinary Tract Infection in Women (ED) Additional Instructions: Please follow-up with your primary care doctor. Return to the emergency room f or any new or worsening symptoms Prescriptions: Ciprofloxacin HCl [Cipro] 500 mg PO BID 1 Days #14 tab Is patient prescribed a controlled substance at d/c from ED?: No Referrals: David Francisco MD [Primary Care Provider] - 1-2 days Time of Disposition: 21:03
[2020-07-22 21:26] VITALS: BP 129/64; PULSE 96; RESP 16; TEMP 100.2
== END 2020-07-22 22:04 | disposition home or self-care (01) ==
LOC: EC 17:44
DX: N39.0 Urinary tract infection, site not specified (principal); R50.9 Fever, unspecified; Z90.49 Acquired absence of other specified parts of digestive tract; Z96.0 Presence of urogenital implants; Z20.828 Contact with and (suspected) exposure to other viral communicable diseases
CPT/HCPCS: 36415; 80053; 83605; 85025; 81001; 87040; 87502; 99283; 96374; 96361; U0003; J0696

== ENCOUNTER 2022-02-20 01:32 | Emergency (ER) | payer BC ==
[2022-02-20 02:21] VITALS: BP 143/81; PULSE 93; RESP 16; TEMP 97.7
--- NOTE | 2022-02-20 03:03 | ED ---
Male Urogenital HPI - General Chief complaint: Urogenital Stated complaint: catheter blocked Time Seen by Provider: 02/20/22 02:37 Source: family Mode of arrival: wheelchair Limitations: no limitations - History of Present Illness Initial comments: This patient is a 61-year-old man with history of MS who presents with complaint that he feels like his catheter has stopped draining. Patient states for the past few hours there has not seemed to be any urine accumulating in the catheter and he is now developing suprapubic pain and has urge to urinate. No fever or chills. No flank pains. MD Complaint: other -: hour(s) Location: abdomen Radiation: none Severity: moderate Quality: dull Consistency: constant Improves with: none Worsens with: none Reports: urinary retention - Related Data Previous Rx's Medication Instructions Recorded Ciprofloxacin HCl [Cipro] 500 mg PO BID 1 Days #14 tab 07/22/20 Allergies Allergy/AdvReac Type Severity Reaction Status Date / Time No Known Allergies Allergy Verified 02/20/22 02:21 Review of Systems ROS Statement: Those systems with pertinent positive or pertinent negative responses have been documented in the HPI. ROS Other: All systems not noted in ROS Statement are negative. Constitutional: Denies: fever, chills Respiratory: Denies: cough, dyspnea Cardiovascular: Denies: chest pain Gastrointestinal: Reports: as per HPI, abdominal pain. Denies: nausea, vomiting, diarrhea Genitourinary: Reports: as per HPI. Denies: testicular pain, testicular mass Musculoskeletal: Denies: back pain Skin: Denies: rash Neurological: Denies: headache Past Medical History Past Medical History: GI Bleed Additional Past Medical History / Comment(s): multiple sclerosis, uses a lift with straps to transfer to chair. , Hospitalized at [facility] 08/27/17-08/28/17 for rectal bleeding, difficulty urinating after discharge and has indwelling rodriguez catheter. History of Any Multi-Drug Resistant Organisms: None Reported Past Surgical History: Cholecystectomy, Tonsillectomy Past Anesthesia/Blood Transfusion Reactions: No Reported Reaction Past Psychological History: No Psychological Hx Reported Smoking Status: Never smoker Past Alcohol Use History: None Reported Past Drug Use History: None Reported - Past Family History Father Additional Family Medical History / Comment(s): Father has heart disease. Mother Family Medical History: No Reported History General Exam General appearance: alert, in no apparent distress Head exam: Present: atraumatic Eye exam: Present: normal appearance GI/Abdominal exam: Present: soft. Absent: distended, tenderness, guarding, rebound, rigid, mass Skin exam: Present: warm, dry, intact, normal color. Absent: rash Course Vital Signs 02/20/22 02:16 Temperature 97.7 F Pulse Rate 93 Respiratory 16 Rate Blood Pressure 143/81 O2 Sat by Pulse 94 L Oximetry Medical Decision Making - Medical Decision Making Patient is 61-year-old man who presents with symptoms of Rodriguez catheter obstruction and urinary retention. The patient did have a Rodriguez catheter changed by nursing personnel prior to my being able to get into the room due to being tied up with an ambulance case. The catheter was changed and the patient did have moderate amount of urine that was passed the patient's symptoms had resolved. Discussed appropriate further care and follow-up Disposition Clinical Impression: Rodriguez catheter problem Disposition: HOME SELF-CARE Condition: Good Instructions (If sedation given, give patient instructions): Rodriguez Catheter Placement and Care (ED) Is patient prescribed a controlled substance at d/c from ED?: No Referrals: David Francisco MD [Primary Care Provider] - 1-2 days
== END 2022-02-20 03:19 | disposition home or self-care (01) ==
LOC: EC 01:32
DX: T83.091A Other mechanical complication of indwelling urethral catheter, initial encounter (principal)
CPT/HCPCS: 51702; 99283

== ENCOUNTER → 2024-09-25 | Outpatient (CLI) | payer BC ==
[2024-09-26 01:23] LABS: Basophils # (A) 0.05 X 10*3/uL (0.00-0.10); Basophils % (A) 0.6 %; Eosinophils # (A) 0.19 X 10*3/uL (0.04-0.35); Eosinophils % (A) 2.4 %; HCT 48.2 % (39.6-50.0); HGB 15.1 g/dL (13.0-17.0); Lymphocytes # (A) 1.77 X 10*3/uL (0.90-5.00); Lymphocytes % (A) 22.2 %; MCH 29.7 pg (27.0-32.0); MCHC 31.3 g/dL (32.0-37.0); MCV 94.7 FL (80.0-97.0); Mean Platelet Volume 10.1 FL (9.5-12.2); Monocytes # (A) 0.88 X 10*3/uL (0.20-1.00); NRBC Per 100 WBC 0 X 10*3/uL (0.00-0.01); Neutrophils # (A) 5.05 X 10*3/uL (1.80-7.70); Neutrophils % (A) 63.3 %; Platelet Count 304 X 10*3/uL (140-440); RBC 5.09 X 10*6/uL (4.40-5.60); RDW 13.1 % (11.5-14.5); WBC 7.98 X 10*3/uL (4.50-10.00)
[2024-09-26 01:49] LABS: Blood Urea Nitrogen 10.5 mg/dL (9.0-27.0); Calcium 9.1 mg/dL (8.7-10.3); Carbon Dioxide 28.3 mmol/L (21.6-31.8); Chloride 100 mmol/L (96-109); Glucose 117 mg/dL (70-110); Potassium 4.1 mmol/L (3.5-5.5); Sodium 139 mmol/L (135-145)
== END | disposition home or self-care (01) ==
LOC: LABPAT 16:00
PROVIDERS: ATTEND Urology
DX: Z01.818 Encounter for other preprocedural examination (principal); N20.9 Urinary calculus, unspecified
CPT/HCPCS: 80048; 85025

== ENCOUNTER 2024-09-28 10:49 | Day surgery (SDC) | payer BC ==
--- NOTE | 2024-09-25 14:48 | P.GSHP ---
History of Present Illness H&P Date: 09/25/24 63 yo male with advanced MS leading to immobility and a chronic indwelling catheter. The patient has been having problems with his cahteter plugging as well as irrigation issues. I did a cysto in the office and found 3 bladder stones. He thus comes for cysto with cystolithotripsy to the bladder stones. Past Medical History Past Medical History: GI Bleed Additional Past Medical History / Comment(s): multiple sclerosis, bladder s tones, indwelling chronic catheter History of Any Multi-Drug Resistant Organisms: None Reported Past Surgical History: Cholecystectomy, Tonsillectomy Additional Past Surgical History / Comment(s): Colonscopy Past Anesthesia/Blood Transfusion Reactions: No Reported Reaction Smoking Status: Never smoker - Past Family History Father Additional Family Medical History / Comment(s): Father has heart disease. Mother Family Medical History: No Reported History Medications and Allergies Home Medications Medication Instructions Recorded Confirmed Type No Known Home Medications 09/24/24 09/24/24 History Allergies Allergy/AdvReac Type Severity Reaction Status Date / Time No Known Allergies Allergy Verified 09/24/24 15:09 Surgical - Exam - General well developed, well nourished, no distress, chronically ill - Eyes normal ocular movement, no icteric - ENT no hearing loss, no congestion - Neck no masses, trachea midline - Respiratory normal respiratory effort, clear to auscultation - Abdomen Abdomen: soft, non tender, no guarding, no rigid, no rebound - Genitourinary indwelling catheter/ - Integumentary no rash, no abnormal pigmentation - Neurologic wheel chair bound due to advanced MS no disoriented, no combative - Psychiatric oriented to time, oriented to person, oriented to place, speech is normal, memory intact Assessment and Plan Assessment: Impression: 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 Bladder stones Plan: cysto with laser lithotripsy to bladder stones.
[~2024-09-28 10:49] MED LIST changes: +AMPICILLIN 1,000 MG in SODIUM CHLORIDE 0.9% 50 ML IVPB PRN; +HYDROmorphone 0.5 MG/0.5 ML SYRINGE IVP PRN; -LACTATED RINGERS 1,000 ML IV SCH; +LIDOCAINE 1% (10MG/ML) FOR IV START INTRADERMA PRN; +droPERidol 5 MG/2 ML VIAL IVP ONE
[2024-09-28] MEDS: LACTATED RINGERS 1,000 ML IV SCH (11:43)
[2024-09-28] MEDS: IV FLUID CONTINUATION 1,000 ML IV ONE (11:43)
--- NOTE | 2024-09-28 12:00 | XR ---
EXAMINATION TYPE: XR KUB DATE OF EXAM: 09/28/2024 11:50 AM COMPARISON: 05/25/2015 CLINICAL INDICATION: Male, 63 years old with history of stone placement; [facility] TECHNIQUE: One radiographic view of the abdomen was obtained. FINDINGS: The bowel gas pattern is nonspecific without dilated loops of small or large bowel. . Fecal material and gas are demonstrated throughout the colon and rectum. There is no evidence for organome delmy or pneumoperitoneum. The osseous structures are intact. Rotated exam with renal stone not defin itively visualized. Bladder stones project over the expected location of the urinary bladder. Monreal c atheter in place with renal stones measuring up to 39 and 33 mm IMPRESSION: 1. Bladder stones in the bladder lumen projecting over the pelvis. 2. No renal stones definitively visualized. 3. Nonspecific bowel gas pattern without radiographic evidence for acute process. [facility], , 09/28/2024 11:57 AM
[2024-09-28] MEDS: GENTAMICIN 120 MG in SODIUM CHLORIDE 0.9% 100 ML IVPB PRN (12:02)
[2024-09-28] MEDS: DEXAMETHASONE SOD PHOSPHATE 4 MG/ML 1 ML VIAL IV ONE (12:07)
[2024-09-28] MEDS: ONDANSETRON 4 MG/2 ML VIAL IVP ONE (12:08)
[2024-09-28] MEDS ORDERED: PHENYLEPHRINE 10 MG/ML VIAL ONE (12:16)
[2024-09-28] MEDS ORDERED: fentaNYL (PF) 50 MCG/ML 2 ML AMP ONE (12:16)
[2024-09-28] MEDS ORDERED: PROPOFOL 10 MG/ML 20 ML VIAL IV ONE (12:16)
[2024-09-28] MEDS ORDERED: LIDOCAINE 1% INJ 10MG/ML (20 ML MDV) ONE (12:16)
[2024-09-28] MEDS ORDERED: MIDAZOLAM 2 MG/2 ML VIAL ONE (12:16)
[2024-09-28] MEDS: LACTATED RINGERS 1,000 ML IV ONE (13:47)
--- NOTE | 2024-09-28 13:49 | P.OP ---
Date of Procedure: 09/28/24 Preoperative Diagnosis: neurogenic bladder with bladder stones Postoperative Diagnosis: same Procedure(s) Performed: cystoscopy with laser lithotripsy to large bladder stones (greater than 5 cm) Anesthesia: MARCOS Surgeon: Werner Padilla Estimated Blood Loss (ml): 50 Pathology: other (bladder stones) Condition: stable Disposition: PACU Indications for Procedure: patient is 63. He has advanced multiple sclerosis. He wears a chronic indwelling catheter. He's been having problems with catheter change and irrigation. Cystoscopy in the office identified several bladder stones. He comes for cystoscopy lithotripsy Description of Procedure: patient brought operating suite. Given a general anesthetic. Placed in a modified lithotomy position. Cystoscopy Foroblique lens and 21-Guamanian sheath identifies a normal urethra. Prostate is not obstructing. There are several bladder stones 5 with a total diameter greater than 5 cm. With 1000 laser probe and 30 W of energy the stones are broken into multiple pieces and irrigated out of the bladder. At the end of the procedure other than bladder edema there is no remaining stones. An 18-Guamanian coud-tip catheter is introduced in the bladder. The patient is awake and returned recovery in good condition. He'll be discharged home upon recovery and found the office in 2 weeks.
[2024-09-28 14:20] VITALS: TEMP 97.4
[2024-09-28 15:55] VITALS: BP 151/72; PULSE 82; RESP 18
== END 2024-09-28 15:45 | disposition home or self-care (01) ==
LOC: OR 10:49
PROVIDERS: ATTEND Urology
DX: N21.0 Calculus in bladder (principal); N31.9 Neuromuscular dysfunction of bladder, unspecified; G35 Multiple sclerosis; Z90.49 Acquired absence of other specified parts of digestive tract; Z90.89 Acquired absence of other organs; Z99.3 Dependence on wheelchair
CPT/HCPCS: 52318; 82365; 74018; J2250; J1100; J2405; J2003; J3010; J1580; J2704; J2371

== ENCOUNTER 2025-04-28 05:46 | Day surgery (SDC) | payer BC ==
--- NOTE | 2025-04-25 17:01 | P.GSHP ---
History of Present Illness H&P Date: 04/25/25 64 yo quadriplegic due to progressive multiple sclerosis. He has a chronic indwelling catheter. He had new onset hematuria. He has a history of bladder stones. A cysto was performed and 2 bladder stones were identified. He comes for a cystolithotripsy - Constitutional Constitutional: Denies chills, Denies fever - EENT Eyes: denies blurred vision, denies pain Ears, nose, mouth and throat: Denies headache, Denies sore throat - Cardiovascular Cardiovascular: Denies chest pain, Denies shortness of breath - Respiratory Respiratory: Denies cough, Denies 7 - Gastrointestinal Gastrointestinal: Denies abdominal pain, Denies diarrhea, Denies nausea, Denies vomiting - Genitourinary (Female) Genitourinary: Denies dysuria, Denies hematuria - Genitourinary (Male) Genitourinary: Denies dysuria, Denies hematuria - Musculoskeletal Musculoskeletal: Denies myalgias - Integumentary Integumentary: Denies pruritus, Denies rash - Neurological Neurological: Denies numbness, Denies weakness - Psychiatric Psychiatric: Denies anxiety, Denies depression - Endocrine Endocrine: Denies fatigue, Denies weight change Past Medical History Past Medical History: GI Bleed Additional Past Medical History / Comment(s): multiple sclerosis, bladder stones, indwelling chronic catheter History of Any Multi-Drug Resistant Organisms: None Reported Past Surgical History: Cholecystectomy, Tonsillectomy Additional Past Surgical History / Comment(s): Colonscopy Past Anesthesia/Blood Transfusion Reactions: No Reported Reaction Smoking Status: Never smoker - Past Family History Father Additional Family Medical History / Comment(s): Father has heart disease. Mother Family Medical History: No Reported History Medications and Allergies Home Medications Medication Instructions Recorded Confirmed Type Sulfamethox-Tmp 800-160Mg [Bactrim 1 tab PO Q12HR #20 tab 09/28/24 Rx DS 800-160 mg] Allergies Allergy/AdvReac Type Severity Reaction Status Date / Time No Known Allergies Allergy Verified 09/28/24 11:01 Surgical - Exam - General well developed, well nourished, no distress - Eyes normal ocular movement, no icteric - ENT no hearing loss, no congestion - Neck no masses, trachea midline - Respiratory normal respiratory effort, clear to auscultation - Abdomen Abdomen: soft, non tender, no guarding, no rigid, no rebound - Genitourinary indwelling catheter. - Integumentary no rash, no abnormal pigmentation - Neurologic Advancing ms with weakness and paraplegia no disoriented, no combative - Psychiatric oriented to time, oriented to person, oriented to place, speech is normal, memory intact Assessment and Plan Assessment: Impression: bladder calculi due to chronic indwelling catheter, advanced MS Plan: cystolithotripsy
[2025-04-27 08:57] VITALS: BMI 22.5
[2025-04-28] MEDS ORDERED: HYDROmorphone 0.5 MG/0.5 ML SYRINGE IVP PRN (07:00)
[2025-04-28] MEDS: IV FLUID CONTINUATION 1,000 ML IV ONE (07:06)
[2025-04-28] MEDS: LACTATED RINGERS 1,000 ML IV SCH (07:12)
--- NOTE | 2025-04-28 07:14 | XR ---
EXAMINATION TYPE: XR KUB portable DATE OF EXAM: 04/28/2025 6:57 AM COMPARISON: 09/28/2024 CLINICAL INDICATION: Male, 64 years old with history of Bladder stones; PHH, pain, presurgical evalua tion TECHNIQUE: One radiographic view of the abdomen was obtained. FINDINGS: There is a prominent bowel gas which limits accurate visualization of the known bladder sto paloma estimated to measure 4.0 cm and 3.1 cm when correlating with the prior study. Diffuse osteopenia. Nonobstructive bowel gas pattern. Mild stool burden. Mild degenerative change of the hips. Cholecyst ectomy clips. IMPRESSION: Known bladder stones measuring 4.0 cm and 3.1 cm though not as well delineated on the present exam du e to overlying bowel gas. [facility], , 04/28/2025 7:12 AM
[2025-04-28] MEDS: DEXAMETHASONE SOD PHOSPHATE 4 MG/ML 1 ML VIAL IV ONE (07:21)
[2025-04-28] MEDS: ONDANSETRON 4 MG/2 ML VIAL IVP ONE (07:21)
[2025-04-28] MEDS ORDERED: PHENYLEPHRINE-0.9% NACL SYG 1,000 MCG/10 ML SYRINGE ONE (07:25)
[2025-04-28] MEDS ORDERED: ROCURONIUM 10 MG/ML (5 ML VIAL) IV ONE (07:25)
[2025-04-28] MEDS ORDERED: MIDAZOLAM 2 MG/2 ML VIAL ONE (07:25)
[2025-04-28] MEDS ORDERED: LIDOCAINE 1% INJ 10MG/ML (20 ML MDV) ONE (07:25)
[2025-04-28] MEDS ORDERED: NEOSTIGMINE 1 MG/ML 10 ML VIAL ONE (07:25)
[2025-04-28] MEDS ORDERED: PROPOFOL 10 MG/ML 20 ML VIAL IV ONE (07:25)
[2025-04-28] MEDS ORDERED: SUGAMMADEX SODIUM 100 MG/ML SYR IV ONE (07:25)
[2025-04-28] MEDS ORDERED: GLYCOPYRROLATE 0.2 MG/ML 2 ML VIAL ONE (07:25)
[2025-04-28] MEDS: GENTAMICIN 120 MG in SODIUM CHLORIDE 0.9% 100 ML IVPB PRN (07:29)
[2025-04-28] MEDS: AMPICILLIN 1,000 MG in SODIUM CHLORIDE 0.9% 50 ML IVPB PRN (07:29)
--- NOTE | 2025-04-28 08:48 | P.OP ---
Date of Procedure: 04/28/25 Preoperative Diagnosis: Multiple bladder stones, neurogenic bladder with chronic indwelling catheter Postoperative Diagnosis: Name Procedure(s) Performed: Cystoscopy with cystoscopy lithotripsy. Anesthesia: GETA Surgeon: Werner Padilla Estimated Blood Loss (ml): 10 Pathology: other Condition: stable Disposition: PACU Indications for Procedure: Patient is 64. He has advanced multiple sclerosis. He has an indwelling catheter. He has had hematuria. He has had previous bladder stones. Follow-up cystoscopy identifies multiple bladder stones. He comes for cystoscopy and cystoscopy lithotripsy Description of Procedure: The operative suite. He was given a general anesthetic. He was placed in lithotomy position with very special care to his airways and extremities. The 21 Wolof sheath and 4 Plex limbs into the urethra. The anterior through is normal the prostatic urethra does show trilobar obstruction. In the bladder there are multiple stones of variety of sizes. There are several stones that are 1 to 2 cm and then the limits about 2-1/2 cm. The total aggregate was 4 cm. Use the micron laser probe through the cystoscope. With 30 W of energy I slowly break the stones into tiny fragments and flushed them out of the bladder with irrigation or the Ellik evacuator. At the end of procedure other than some edema and erythema from the cystoscopy lithotripsy there is no remaining stones or abnormality. Cystoscope was removed. The Monreal catheter introduced. The patient is awakened returned recovery in good condition. He tolerated procedure well will be discharged home upon recovery. Estimated blood loss is about 10 mL
[2025-04-28 08:52] VITALS: TEMP 97.1
[2025-04-28 10:07] VITALS: BP 135/70; PULSE 84; RESP 16
== END 2025-04-28 10:30 | disposition home health service (06) ==
LOC: OR 05:46
PROVIDERS: ATTEND Urology
DX: N21.0 Calculus in bladder (principal); N31.9 Neuromuscular dysfunction of bladder, unspecified; G35 Multiple sclerosis; G82.50 Quadriplegia, unspecified; Z90.49 Acquired absence of other specified parts of digestive tract; Z90.89 Acquired absence of other organs; Z79.899 Other long term (current) drug therapy
CPT/HCPCS: 52318; 82365; 74018; C1769; J2250; J1100; J2710; J2405; J2003; J1580; J0290; J2704; J2371; J1596